=== PATIENT | female | born 1945 | race Caucasian/White ===

== ENCOUNTER 2019-10-12 10:22 | Outpatient (CLI) | payer MEDICARE, SELFPAY ==
[2019-10-12 12:14] LABS: Alanine Aminotransferase 13 U/L (4-35); Alkaline Phosphatase 104 U/L (38-126); Aspartate Amino Transferase 21 U/L (14-36); Bilirubin,Total 0.7 mg/dL (0.2-1.3); Blood Urea Nitrogen 52 mg/dL (7-17); Calcium 9.4 mg/dL (8.4-10.2); Carbon Dioxide 30 mmol/L (22-30); Chloride 98 mmol/L (98-107); Cholesterol 88 mg/dL (0-200); Estimated Glomerular Filt Rate 28; Glucose 79 mg/dL (65-105); HDL Direct 23 mg/dL; Potassium 3.4 mmol/L (3.4-5.0); Sodium 140 mmol/L (137-145); Triglycerides 91 mg/dL (<150)
[2019-10-12 12:24] LABS: LDL Cholesterol Direct 51 mg/dL
[2019-10-12 14:11] LABS: Total Triiodothyronine (T3) 0.63 NG/ML (0.97-1.69)
== END 2019-10-12 10:23 | disposition home or self-care (01) ==
LOC: ANHLAB 10:24
PROVIDERS: Nurse Practitioner Family; Visit Provider Internal Medicine Hematology & Oncology
DX: E78.2 Mixed hyperlipidemia (principal); E03.9 Hypothyroidism, unspecified; E11.40 Type 2 diabetes mellitus with diabetic neuropathy, unspecified
CPT/HCPCS: 36415; 80053; 80061; 83036; 84439; 84443; 84480